=== PATIENT | female | born 1965 | race Caucasian/White ===

== ENCOUNTER 2020-01-21 17:04 | Emergency (ER) | payer OTHER, SELFPAY ==
[2020-01-21 17:10] VITALS: BP 143/95; PULSE 131; RESP 22; TEMP 36.9; O2SAT 97; BMI 46.2
--- NOTE | 2020-01-21 17:29 | ED.HEATRA ---
HPI - Head Injury <CLARENCE Browning - Last Filed: 01/21/20 18:49> General Chief complaint: Wound/Laceration Stated complaint: Head laceration Time Seen by Provider: 01/21/20 17:06 Source: patient Mode of arrival: Ambulatory Limitations: no limitations History of Present Illness HPI Narrative: This is a 54-year-old female, nonsmoker, has past medical history significant for Lyme disease which caused heart failure, presents to ED with family with chief complain of head injury and laceration and posterior scalp. Patient states she was walking along the shore at the [facility] and stepped on a wet rock and landed on posterior head. Patient denies losing consciousness or having amnesia, patient was initially nauseated but this has been resolved. Patient denies vision change, weakness to upper or lower extremities, decreased sensation in extremities, vomiting, headache, chest pain, dyspnea, abdominal pain, neck pain. She has been ambulatory. Patient is not currently taking anticoagulants or anti platelets. [facility] [place] [facility] [facility] and okay to go to ED by POV and she states they found a hematoma and laceration in posterior head. Patient states do not do vaccination and declined tetanus immunizations. Related Data Allergies Allergy/AdvReac Type Severity Reaction Status Date / Time No Known Drug Allergies Allergy Verified 01/21/20 17:31 Review of Systems <CLARENCE Browning - Last Filed: 01/21/20 18:49> Review of Systems Narrative: General: Denies fever, chills, fatigue, malaise, sweats. HEENT: Denies sinus pain, ear pain, sore throat, difficulty swallowing, dizziness. Respiratory: Denies dyspnea, cough, wheezing, hemoptysis, sputum. Cardiovascular: Denies chest pain, palpitations, orthopnea, edema. Gastrointestinal: Denies nausea, vomiting, abdominal pain, diarrhea, constipation, melena. : Denies dysuria, frequency, incontinence, hematuria, urinary retention. Musculoskeletal: Denies weakness, joint pain or bony pain. Skin: See HPI Neurologic: See HPI Psychiatric: Reports nervous to be in the hospital. 12-point review of systems is negative except for those stated above. Patient History <CLARENCE Browning - Last Filed: 01/21/20 18:49> Medical History Heart failure Lyme disease Social History Smoking Status: Never smoker alcohol intake: never substance use type: does not use Exam <CLARENCE Browning - Last Filed: 01/21/20 18:49> Narrative Exam Narrative: GEN: Alert, oriented x 3, well appearing obese female, appears to be slightly anxious. Head: Small soft hematoma on posterior upper head without active bleeding. Approximate 2 mm puncture like laceration without active bleeding. Tenderness to palpate posterior upper scalp. Unable to appreciate crepitus or step-offs. No raccoon signs. EYES: Pupils are equal, round, and reactive to light and accommodation. Extraocular muscles are intact bilaterally. There is no subconjunctival hemorrhage, exudate and sclera non-icteric. ENT: Bilateral auditory canals and tympanic membranes clear without drainage or hemotympanum. Hearing grossly intact. Nose without bleeding, purulent discharge, septal hematoma or deviation. Turbinate without erythema or swelling. Facial sinuses nontender to palpate. Mucous membrane moist, no mucosal lesion. Throat without erythema, tonsillar hypertrophy or exudate. Uvula in midline, airway patent. Neck: Trachea in midline. No JVD, non-tender without lymphadenopathy. No masses or thyroid megaly. Supple, non-tender, no step-offs, no nance sign and no meningeal signs. CARDIAC: Normal regular rate and rhythm without murmurs, gallops, or rubs. No chest wall tenderness. No peripheral edema, cyanosis or pallor. Capillary refill is less than 2 seconds. No carotid bruits. RESPIRATORY: Lungs are cleat to auscultate bilaterally. No cough, wheezes, rales, or rhonchi. No stridor, respiratory distress, increase work of breathing, or accessary muscle used. ABD: Abdomen soft, obese and non-tender. No guarding or rebound tenderness to palpate. Bowel sounds are normal in all 4 quadrants. There is no palpable masses or organomegaly. EXT: Full painless ROM of all extremities with no loss of sensation, strength, effusion or edema. SKIN: Warm, dry, normal color for patient. No erythema, lesions or rash. See Head assessment. BACK: Nontender without deformity or crepitance. No flank tenderness. NEUROLOGICAL: Alert and oriented to place, time and person. No facial droops, dysphasia. CN II-XII intact. Strength and sensation symmetric and intact throughout. Reflexes 2+ throughout. Cerebellar testing normal. PSYCHIATRIC: Good judgement and reason, without hallucinations, abnormal affect or abnormal behaviors during the examination. Patient is not suicidal. Initial Vital Signs Initial Vital Signs: Vital Signs Temperature 98.5 F 01/21/20 17:10 Pulse Rate 131 H 01/21/20 17:10 Respiratory Rate 22 01/21/20 17:10 Blood Pressure 143/95 H 01/21/20 17:10 Pulse Oximetry 97 01/21/20 17:10 <Ingrid Blackman DO - Last Filed: 01/22/20 07:13> Initial Vital Signs Initial Vital Signs: Vital Signs Temperature 98.5 F 01/21/20 17:10 Pulse Rate 131 H 01/21/20 17:10 Respiratory Rate 22 01/21/20 17:10 Blood Pressure 143/95 H 01/21/20 17:10 Pulse Oximetry 97 01/21/20 17:10 Scores <CLARENCE Browning - Last Filed: 01/21/20 18:49> GCS Bill coma scale eye opening: Spontaneous Bill coma scale verbal response: Orientated [place] coma scale motor response: Obey commands Bill coma scale total score: 15 Nexus Score for C-Spine Focal Neurologic deficit present: No Midline spinal tenderness present: No Altered level of conciousness present: No Intoxication present: No Distracting Injury Present: No Nexus Criteria for C-spine: 0 Course <CLARENCE Browning - Last Filed: 01/21/20 18:49> Orders Ordered: Discontinued Medications Bacitracin (Bacitracin Oint 0.9 Gm Pckt) 1 applic TOP NOW ONE Stop: 01/21/20 17:56 Last Admin: 01/21/20 18:43 Dose: 1 applic Documented by: ANNA Reevaluation(s) Reevaluation #1: Patient declined CT scan of head after informing unable to appreciate crepitus or step-offs in scalp palpation due to soft spot from hematoma. We discussed signs and symptoms for infection, closed head injury precautions and patient verbalized understanding and states will monitor those symptoms and will return to ED immediately. In shared decision making, no suture, jone for Dermabond to treat small laceration on scalp. Time: 18:20 Vital Signs Vital signs: Vital Signs - 8 hr 01/21/20 17:10 Temperature 98.5 F Pulse Rate 131 H Respiratory Rate 22 Blood Pressure 143/95 H Pulse Oximetry 97 <Ingrid Blackman DO - Last Filed: 01/22/20 07:13> Orders Ordered: Discontinued Medications Bacitracin (Bacitracin Oint 0.9 Gm Pckt) 1 applic TOP NOW ONE Stop: 01/21/20 17:56 Last Admin: 01/21/20 18:43 Dose: 1 applic Documented by: ANNA Vital Signs Vital signs: Vital Signs - 8 hr 01/21/20 17:10 Temperature 98.5 F Pulse Rate 131 H Respiratory Rate 22 Blood Pressure 143/95 H Pulse Oximetry 97 MDM - Head Injury <CLARENCE Browning - Last Filed: 01/21/20 18:49> Differential Diagnosis Differential diagnosis: Likely concussion without loss of consciousness, closed head injury, subdural hematoma and other (Head laceration, contusion, abrasion) Medical Records Attestation: I reviewed the patient's medical records. [facility] Narrative Medical decision making narrative: This is a 54 year female who presents to ED after she accidentally fell backwards after stepping on a wet rock and hit posterior head at [facility]. No loss of consciousness, neurological deficit, mid cervical tenderness. Physical findings appreciated very tiny puncture like laceration in upper posterior scalp with soft hematoma after good cleaning. Deferred laceration treatment with Dermabond, suture, and staple. GCS 15, nexus score for C-spine criteria 0, Haitian head CT guideline score 0. Patient declined CAT scan of head when offered and declined tetanus immunization because she does believe in immunizations. We discussed wound care at home, monitoring for signs and symptoms for infection, closed head injury precautions with patient and she verbalized understanding to return to ED immediately and will warrant CT test. Discharge Plan Departure Patient Disposition: Home Clinical Impression: Laceration of scalp Qualifiers: Encounter type: initial encounter Qualified Code(s): S01.01XA - Laceration without foreign body of scalp, initial encounter Closed head injury Qualifiers: Encounter type: initial encounter Qualified Code(s): S09.90XA - Unspecified injury of head, initial encounter Instructions: DI for Closed Head Injury, DI for Minor Laceration Activity Restrictions/Additional Instructions: You have been diagnosed with [closed head injury and small puncture like laceration in posterior head. Declined tetanus vaccination.]. What to do: *Take your medications as directed. You can take [id number] Tylenol as needed for discomfort. Use cool pack on affected head to help with swelling and pain. *Follow up with your primary care provider in 2-3 days, call for an appointment. Let them know you were seen in the ED and that we asked you to be seen in follow up. *Return to ED if you have any new, worsening, or concerning symptoms, such as [worsening headache, vomiting, vision change, unusual behaviors, seizure-like activity, weakness/tingling/numbness to extremities, neck pain, fever or any acute concerns].
[2020-01-21] MEDS: BACITRACIN OINT 0.9 GM PCKT 1 APPLIC TOP (18:43)
[2020-01-21 18:50] VITALS: BP 121/77; PULSE 116; RESP 12; O2SAT 96
== END 2020-01-21 18:53 | disposition home or self-care (01) ==
PROVIDERS: Emergency Provider Nurse Practitioner Family
DX: S01.01XA Laceration without foreign body of scalp, initial encounter (principal); S09.90XA Unspecified injury of head, initial encounter; W01.198A Fall on same level from slipping, tripping and stumbling with subsequent striking against other object, initial encounter; A69.20 Lyme disease, unspecified; I50.9 Heart failure, unspecified; E66.9 Obesity, unspecified; Z68.42 Body mass index [BMI] 45.0-49.9, adult
CPT/HCPCS: 99281